=== PATIENT | female | born 1975 ===

== ENCOUNTER 2024-05-19 06:36 | Outpatient (REF) | payer OTHER, SELFPAY ==
--- NOTE | ~2024-05-19 | US_ITS ---
EXAMINATION: US PELVIS CLINICAL INFORMATION: Menorrhagia COMPARISON: None available. TECHNIQUE: Ultrasound of the pelvis is performed using both transabdominal and transvaginal transducers along with Doppler. Transvaginal imaging is performed due to inadequate visualization transabdominally. FINDINGS: Uterus: The uterus is anteverted and measures 8.3 x 4.8 x 5.4 cm. The double wall endometrial thickness is 2 mm. Several fibroids are seen which appear intramural, fundal at 17 x 17 x 25 mm, anterior at 11 x 9 x 11 mm, and posterior at 14 x 12 x 10 mm and 10 x 8 x 9 mm. Adnexa: Both ovaries are visualized. There is normal color flow to the adnexa. There is no ovarian torsion. There is no pelvic ascites or fluid collection. Right ovary measures 2.3 x 1.9 x 2.2 cm. The appendix is noted at 11 x 10 x 14 mm. Left ovary measures 1.5 x 1.7 x1.5 cm. US/US pelvic and transvaginal IMPRESSION: Small uterine fibroids. Endometrium appears unremarkable. Electronically signed by: Anurag Berry MD 05/19/2024 02:31 PM EDT RP
== END 2024-05-19 06:37 | disposition home or self-care (01) ==
LOC: HO.UMASIMG 06:36
PROVIDERS: Visit Provider Family Medicine
DX: R10.9 Unspecified abdominal pain (principal); J02.9 Acute pharyngitis, unspecified
CPT/HCPCS: 76830; 76856

== ENCOUNTER 2024-07-06 14:08 | Outpatient (REF) | payer OTHER, SELFPAY ==
[2024-07-06] MEDS: iohexoL 350 MG/ML 75 ML INFUS..BTL 85 ML IV (16:16)
[2024-07-06] MEDS: Barium Sulfate Oral (Vanilla) 450 ML ORAL.SUSP 900 ML PO (16:17)
== END 2024-07-06 14:09 | disposition home or self-care (01) ==
LOC: HO.CT 14:08
PROVIDERS: PCP Family Medicine; Visit Provider Family Medicine
DX: R10.9 Unspecified abdominal pain (principal); J02.9 Acute pharyngitis, unspecified
CPT/HCPCS: 74177; Q9967

== ENCOUNTER → 2024-07-06 14:10 | Outpatient (BNV) | payer OTHER, SELFPAY | PROVIDERS: PCP Family Medicine; Visit Provider Radiology Diagnostic Radiology | DX: R14.0 Abdominal distension (gaseous) (principal) | CPT/HCPCS: 74177 ==